=== PATIENT | female | born 1995 | race Caucasian/White ===

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

== ENCOUNTER 2020-12-22 23:27 | Emergency (ER) | payer OTHER ==
[~2020-12-22 23:27] MED LIST: ATARAX25 MG PO; BACTRIM DS TAB1 EACH PO; PEPCID AC20 MG PO; PERIDEX15 ML PO; PREDNISONE 20MG20 MG PO; VOLTAREN **OUT75 MG PO
[2020-12-23 00:01] LABS: BILIRUBIN NEGATIVE (NEGATIVE); BLOOD TRACE-INTACT Ery/uL (NEGATIVE); CLARITY CLEAR (CLEAR); COLOR YELLOW (YELLOW); GLUCOSE (U) NORMAL (NORMAL); LEUKOCYTES TRACE Leu/uL (NEGATIVE); NITRITE NEGATIVE (NEGATIVE); PROTEIN NEGATIVE (NEGATIVE); SPECIFIC GRAVITY 1.025 (1.001-1.030)
[2020-12-23 00:13] LABS: BACTERIA TRACE; MUCOUS TRACE
[2020-12-23 00:14] LABS: AMORPHOUS URATES CRYSTALS TRACE
[2020-12-23 00:22] LABS: BASOPHIL 0.3 % (0-2); EOSINOPHIL 1.4 % (0-5); HCT 34.1 % (37.0-47.0); HGB 11.7 g/dl (12.5-16.0); LYMPHOCYTE 14.8 % (15-48); MCH 31.4 pg (25.0-31.0); MCHC 34.3 g/dL (32.0-36.0); MCV 91.4 fL (78.0-100.0); MONOCYTE 5.8 % (0-12); MPV 9.4 fL (6.0-9.5); NEUTROPHIL 77.2 % (41-80); NRBC 0; PLT 176 K/uL (150-400); RBC 3.73 M/uL (4.20-5.40); RDW 12.6 % (11.5-14.0); WBC 11.8 K/uL (4.0-10.5)
[2020-12-23 00:43] LABS: CREATININE 0.6 mg/dL (0.51-0.95)
[2020-12-23 00:44] LABS: ALBUMIN 2.9 g/dL (3.4-5.0); BILIRUBIN - TOTAL 0.2 mg/dL (0.2-1.0); GLOBULIN (CALCULATION) 3.8 g/dL; POTASSIUM 3.6 mmol/L (3.5-5.1); TOTAL PROTEIN 6.7 g/dL (6.4-8.2)
[2020-12-23] MEDS ORDERED: ONDANSETRON ODT4 MG SL (01:29)
[2020-12-23] MEDS ORDERED: CEPHALEXIN500 M1 PO (01:29)
[2020-12-23] MEDS ORDERED: PERCOCET 5-3251 EACH PO (01:29)
== END 2020-12-23 01:42 | disposition home or self-care (01) ==
LOC: FER 23:27
PROVIDERS: Emergency Medicine Emergency Medical Services
DX: O23.12 Infections of bladder in pregnancy, second trimester (principal); F17.210 Nicotine dependence, cigarettes, uncomplicated; Z88.0 Allergy status to penicillin; Z88.8 Allergy status to other drugs, medicaments and biological substances; Z3A.26 26 weeks gestation of pregnancy
CPT/HCPCS: 36415; 80053; 81001; 84145; 85025; 87088; J2270; J2405; J7030

== ENCOUNTER 2021-03-25 00:02 | Inpatient (IN) | payer OTHER ==
[~2021-03-25] VITALS: Ht 170.2 cm; Wt 83.5 kg
[~2021-03-25 00:02] MED LIST changes: +CEPHALEXIN500 M1 PO; +ONDANSETRON ODT4 MG SL; +PERCOCET 5-3251 EACH PO
[2021-03-25 01:26] LABS: HCT 33.5 % (37.0-47.0); HGB 11.3 g/dl (12.5-16.0); MCH 30.1 pg (25.0-31.0); MCHC 33.7 g/dL (32.0-36.0); MCV 89.1 fL (78.0-100.0); MPV 9.9 fL (6.0-9.5); RBC 3.76 M/uL (4.20-5.40); RDW 12.7 % (11.5-14.0); WBC 15.1 K/uL (4.0-10.5)
[2021-03-25 01:28] LABS: BILIRUBIN NEGATIVE (NEGATIVE); BLOOD 2+ Ery/uL (NEGATIVE); CLARITY CLEAR (CLEAR); COLOR YELLOW (YELLOW); GLUCOSE (U) NORMAL (NORMAL); LEUKOCYTES 2+ Leu/uL (NEGATIVE); NITRITE NEGATIVE (NEGATIVE); PROTEIN NEGATIVE (NEGATIVE); UROBILINOGEN 0.2 mg/dL (0.2-1.0); pH 6.5 (5.0-9.0)
[2021-03-25 01:52] LABS: AMPHETAMINES NEGATIVE (NEGATIVE); BARBITURATES NEGATIVE (NEGATIVE); ECSTASY (MDMA) NEGATIVE (NEGATIVE); MARIJUANA (THC) NEGATIVE (NEGATIVE); METHADONE NEGATIVE (NEGATIVE); OPIATES NEGATIVE (NEGATIVE); OXYCODONE NEGATIVE (NEGATIVE)
[2021-03-25 02:05] LABS: BACTERIA TRACE
[2021-03-26 05:46] LABS: HCT 32.9 % (37.0-47.0); HGB 10.8 g/dl (12.5-16.0); MCH 29.4 pg (25.0-31.0); MCHC 32.8 g/dL (32.0-36.0); MCV 89.6 fL (78.0-100.0); MPV 9.9 fL (6.0-9.5); RBC 3.67 M/uL (4.20-5.40); RDW 12.6 % (11.5-14.0); WBC 14.6 K/uL (4.0-10.5)
[2021-03-26] MEDS ORDERED: IBUPROFEN800 MG PO (15:28)
[2021-03-26] MEDS ORDERED: FEOSOL325 MG PO (15:28)
== END 2021-03-27 12:16 | disposition home or self-care (01) | DRG 807 ==
LOC: FOB 00:02
PROVIDERS: ADMIT Obstetrics & Gynecology
PROC: 10E0XZZ Delivery of Products of Conception, External Approach (ICD-10-PCS; principal; 2021-03-25)
PROC: 3E033VJ Introduction of Other Hormone into Peripheral Vein, Percutaneous Approach (ICD-10-PCS; 2021-03-25)
PROC: 10907ZC Drainage of Amniotic Fluid, Therapeutic from Products of Conception, Via Natural or Artificial Opening (ICD-10-PCS; 2021-03-25)
PROC: 3E0P7VZ Introduction of Hormone into Female Reproductive, Via Natural or Artificial Opening (ICD-10-PCS; 2021-03-25)
DX: O98.82 Other maternal infectious and parasitic diseases complicating childbirth (principal); Z37.0 Single live birth; Z20.822 Contact with and (suspected) exposure to COVID-19; B95.1 Streptococcus, group B, as the cause of diseases classified elsewhere; Z3A.39 39 weeks gestation of pregnancy; Z88.0 Allergy status to penicillin
CPT/HCPCS: 36415; 80305; 81001; 86850; 86900; 86901; J0690; J7120; U0002